=== PATIENT | female | born 1940 | race Caucasian/White ===

== ENCOUNTER 2020-10-19 15:22 | Emergency (ER) | payer MEDICARE ==
[2020-10-19 15:32] VITALS: O2SAT 98
--- NOTE | 2020-10-19 15:42 | ERPHSYRPT ---
- History of Present Illness Time Seen by Provider: 10/19/20 15:40 Source: patient Exam Limitations: no limitations Patient Subjective Stated Complaint: Pt states "I fell down two steps. I stumbled and fell." Triage Nursing Assessment: PT presented alert and oriented X 3, skin pwd Pt ambulates with assistance, pt has sofía splint on her left lower arm. Pt CSM X 4 Physician History: Pt states "I fell down two steps. I stumbled and fell." hurt my left wrist. denies any other injury Occurred: just prior to arrival Method of Injury: fell Quality: sharpness Severity of Pain-Max: moderate Severity of Pain-Current: moderate Extremities Pain Location: wrist: left Modifying Factors: Improves With: nothing Associated Symptoms: none Allergies/Adverse Reactions: melon Adverse Reaction (Intermediate, Verified 10/19/20 15:33) Diarrhea opiates Allergy (Intermediate, Uncoded 10/19/20 15:33) Home Medications: Amlodipine Besylate 5 mg [Norvasc 5 mg] 5 mg PO DAILY 10/19/20 [History] Atorvastatin Calcium [Lipitor 40Mg] 40 mg PO DAILY 10/19/20 [History] lisinopriL [Lisinopril] 20 mg PO DAILY 10/19/20 [History] Hx Tetanus, Diphtheria Vaccination/Date Given: Yes Hx Influenza Vaccination/Date Given: Yes Hx Pneumococcal Vaccination/Date Given: No Immunizations Up to Date: Yes Travel Risk - International Travel Have you traveled outside of the country in past 3 weeks: No - Coronavirus Screening Are you exhibiting any of the following symptoms?: No Close contact with a COVID-19 positive Pt in past 14-21 Days: No - Vaccine Status Have you recieved a Covid-19 vaccination: Yes [employer]: [employer] - Vaccination Dates Date of 2cond Vaccination (if applicable): 06/2020 - Review of Systems Constitutional: No Fever, No Chills Eyes: No Symptoms Ears, Nose, & Throat: No Symptoms Respiratory: No Cough, No Dyspnea Cardiac: No Chest Pain, No Edema, No Syncope Abdominal/Gastrointestinal: No Abdominal Pain, No Nausea, No Vomiting, No Diarrhea Genitourinary Symptoms: No Dysuria Musculoskeletal: Deformity (left wrist), Fall, No Back Pain, No Neck Pain Skin: No Rash Neurological: No Dizziness, No Focal Weakness, No Sensory Changes Psychological: No Symptoms Endocrine: No Symptoms All Other Systems: Reviewed and Negative - Past Medical History Pertinent Past Medical History: Yes Cardiac History: Coronary Artery Disease, High Cholesterol, Hypertension - Past Surgical History Past Surgical History: Yes Other Surgical History: hysterectomy. tonsils. appi - Social History Smoking Status: Never smoker Exposure to second hand smoke: No Drug Use: none Patient Lives Alone: No - Nursing Vital Signs Nursing Vital Signs: Initial Vital Signs Temperature 98.1 F 10/19/20 15:23 Pulse Rate 80 10/19/20 15:23 Respiratory Rate 20 10/19/20 15:23 Blood Pressure 170/92 10/19/20 15:23 O2 Sat by Pulse Oximetry 98 10/19/20 15:23 Pain Scale Pain Intensity 6 - Physical Exam General Appearance: alert Eyes, Ears, Nose, Throat Exam: moist mucous membranes Neck Exam: non-tender, supple Cardiovascular/Respiratory Exam: chest non-tender, normal breath sounds, regular rate/rhythm, no respiratory distress Abdominal Exam: non-tender, No guarding Back Exam: normal inspection, No vertebral tenderness Wrist Exam: asymmetry, bone tenderness, deformity (left wrist), limited ROM, pain, soft tissue tenderness Neuro/Tendon Exam: normal sensation, normal motor functions Mental Status Exam: alert, oriented x 3, cooperative Skin Exam: normal color, warm, dry SpO2: 98 Procedures - Splinting Time of Procedure: 16:10 Location of Splint: Left, Wrist Type of Splint: Orthoglass Long Arm Splint (reverse sugar tong splint) Splint Applied By: ED Nurse Pre-Proc Neuro Vasc Exam: normal Post-Proc Neuro Vasc Exam: neurovascular intact - Course Nursing assessment & vital signs reviewed: Yes - Radiology Exams Wrist X-ray Interpretation: Reviewed by me (COLLE'S FRACTURE Left) Ordered Tests: Active Orders 24 hr Category Date Time Status WRIST (MIN 3 VIEWS) Stat Exams 10/19/20 15:39 Taken - Progress Progress: improved, pain not gone completely Progress Note: 10/19/20 16:11 Patient is from out of town. So she is advised to follow-up with orthopedic surgeon on Wednesday or Wednesday. She is informed that at this point of time we have given her temporary cast for her fracture of her left wrist. Counseled pt/family regarding: diagnosis, need for follow-up, rad results - Departure Departure Disposition: Home Clinical Impression: Colles' fracture of left radius Qualifiers: Encounter type: initial encounter Fracture type: closed Qualified Code(s): S52.532A - Colles' fracture of left radius, initial encounter for closed fracture Condition: Stable Critical Care Time: No Instructions: Colles' Fracture (DC) Additional Instructions: Patient is from out of town. So she is advised to follow-up with orthopedic surgeon on Wednesday or Wednesday. She is informed that at this point of time we have given her temporary cast for her fracture of her left wrist. Prescriptions: Naproxen 375 mg [Naprosyn 375 mg] 375 mg PO Q8H #20 tablet
[2020-10-19 16:47] VITALS: BP 186/104; PULSE 78
--- NOTE | 2020-10-19 21:01 | XRAY ---
Indication: Pain following fall. Comparison: None 3 view left wrist demonstrates comminuted and angulated distal radius fracture with intra-articular extension and soft tissue swelling. Also nondisplaced impacted distal ulna and ulnar styloid fracture. Elsewhere osteopenia and moderate degenerative changes 1st metacarpal multangular scaphoid articulation.
== END 2020-10-19 18:08 | disposition home or self-care (01) ==
LOC: ED 15:22
DX: S52.532A Colles' fracture of left radius, initial encounter for closed fracture (principal); W10.9XXA Fall (on) (from) unspecified stairs and steps, initial encounter; Y93.9 Activity, unspecified; Y92.89 Other specified places as the place of occurrence of the external cause; I10 Essential (primary) hypertension; I25.10 Atherosclerotic heart disease of native coronary artery without angina pectoris; E78.00 Pure hypercholesterolemia, unspecified
CPT/HCPCS: 29105; 73110; 99284